=== PATIENT | male | born 1975 | race Caucasian/White ===

== ENCOUNTER 2020-08-15 02:33 | Emergency (ER) | payer BC ==
[~2020-08-15] VITALS: Ht 170.2 cm; Wt 75.7 kg
[2020-08-15 02:38] VITALS: Ht 170.2 cm; Wt 75.7 kg
[2020-08-15] MEDS ORDERED: ZOF4 PO (03:46)
[2020-08-15] MEDS ORDERED: MOTION SICKNESS25 MG PO (03:46)
[2020-08-15 06:48] VITALS: BP 109/80
== END 2020-08-15 06:49 | disposition home or self-care (01) ==
LOC: ED 02:33
DX: R42 Dizziness and giddiness (principal); Z90.89 Acquired absence of other organs; R11.0 Nausea
CPT/HCPCS: J2405; J8597